=== PATIENT | female | born 1955 | race Caucasian/White ===

== ENCOUNTER 2017-11-23 07:04 | Day surgery (SDC) | payer OTHER ==
[2017-11-23] MEDS ORDERED: MIDAZOLAM 1 MG/ML 2 ML INJ ×3 (11:04)
[2017-11-23] MEDS ORDERED: FENTAnyl 50 MCG/ML VIAL (11:04)
== END 2017-11-23 15:22 | disposition home or self-care (01) ==
LOC: GIL 07:04
DX: K44.9 Diaphragmatic hernia without obstruction or gangrene (principal); K21.9 Gastro-esophageal reflux disease without esophagitis; K29.70 Gastritis, unspecified, without bleeding; K64.8 Other hemorrhoids; D50.9 Iron deficiency anemia, unspecified; I10 Essential (primary) hypertension; E78.5 Hyperlipidemia, unspecified; E03.9 Hypothyroidism, unspecified; F17.200 Nicotine dependence, unspecified, uncomplicated
CPT/HCPCS: 43239; 87081

== ENCOUNTER → 2019-02-28 | Outpatient (CLI) | payer MEDICARE, OTHER | END | disposition home or self-care (01) | LOC: C/S 11:25 | DX: R10.32 Left lower quadrant pain (principal) | CPT/HCPCS: 74176 ==